=== PATIENT | female | born 1980 | race Caucasian/White ===

== ENCOUNTER → 2018-12-17 | Outpatient (CLI) | payer OTHER ==
--- NOTE | 2018-12-18 10:26 | MM ---
Reason for exam: screening (asymptomatic). Last mammogram was performed 1 year and 3 months ago. History: Patient had first child at age 30. Physical Findings: A clinical breast exam by your physician is recommended on an annual basis and results should be correlated with mammographic findings. MG 3D Screening Mammo W/Cad Bilateral CC and MLO view(s) were taken. Prior study comparison: September 29, 2017, bilateral MG screening mammo w CAD. September 09, 2016, bilateral MG screening mammo w CAD. The breast tissue is extremely dense which could obscure a lesion on mammography. Finding: There are two 10 mm equal density (isodense) masses in the subareolar position and posterior central position of the right breast on CC view. ASSESSMENT: Incomplete: need additional imaging evaluation, BI-RAD 0 RECOMMENDATION: Special view mammogram of the right breast. If lesion persists on supplemental views, image directed ultrasound is recommended. [facility] will attempt to contact patient to return for supplemental views and ultrasound if indicated.
== END ==
LOC: RADMAMWWP 13:23
PROVIDERS: ATTEND Obstetrics & Gynecology
DX: Z12.31 Encounter for screening mammogram for malignant neoplasm of breast (principal)
CPT/HCPCS: 77063; 77067

== ENCOUNTER → 2018-12-24 | Outpatient (CLI) | payer OTHER ==
--- NOTE | 2018-12-24 15:12 | MM ---
Reason for exam: additional evaluation requested from abnormal screening. Last mammogram was performed less than 1 month ago. History: Patient had first child at age 30. Physical Findings: Nurse Summary: 0.5cm nodule in the right breast at 7 o'clock, 1 o'clock (nurse kp). MG 3D Work Up W/Cad RT CC and MLO view(s) were taken of the right breast. Prior study comparison: December 17, 2018, bilateral MG 3d screening mammo w/cad. September 29, 2017, bilateral MG screening mammo w CAD. The breast tissue is heterogeneously dense. This may lower the sensitivity of mammography. No distinct lesion persists on additional views. These results were verbally communicated with the patient and result sheet given to the patient on 12/24/18. ASSESSMENT: Incomplete: need additional imaging evaluation, BI-RAD 0 RECOMMENDATION: Ultrasound of the right breast. (palpable by nurse)
--- NOTE | 2018-12-24 15:13 | USB ---
Reason for exam: additional evaluation requested from abnormal screening. History: Patient had first child at age 30. US Breast Workup Limited RT Right limited breast ultrasound including focal area of concern, retroareolar and axilla demonstrates a 6 x 4 x 6mm oval, cystic lesion at 12 o'clock and a 4 x 3 x 3mm lobular lesion too small to characterize at 12 o'clock. These results were verbally communicated with the patient and result sheet given to the patient on 12/24/18. ASSESSMENT: Probably benign, BI-RAD 3 RECOMMENDATION: Ultrasound of the right breast in 6 months.
== END | disposition home or self-care (01) ==
LOC: RADMAMWWP 13:33
PROVIDERS: ATTEND Obstetrics & Gynecology
DX: R92.8 Other abnormal and inconclusive findings on diagnostic imaging of breast (principal)
CPT/HCPCS: 77061; 77065

== ENCOUNTER → 2019-06-30 | Outpatient (CLI) | payer OTHER ==
--- NOTE | 2019-06-30 11:28 | USB ---
Reason for exam: follow-up at short interval from prior study. History: Patient had first child at age 30. Physical Findings: Nurse Summary: BB at 12 o'clock (nurse kp). US Breast RT Right complete breast ultrasound includes all four quadrants, the retroareolar region and axilla. Finding demonstrates a 0.4 x 0.3 x 0.3cm lesion too small to characterize at 12 o'clock, palpable correlation, a 0.4 x 0.3 x 0.3cm lesion at 12 o'clock, a 0.4 x 0.3 x 0.4cm lesion too small to characterize at 12 o'clock, taller than wide, biopsy recommended and a 0.6 x 0.4 x 0.4cm cystic lesion at 11 o'clock. These results were verbally communicated with the patient and result sheet given to the patient on 06/30/19. ASSESSMENT: Suspicious, BI-RAD 4 RECOMMENDATION: Ultrasound core biopsy of the right breast. (12 o'clock, 8cm from the nipple) Called Dr. Henriquez with mammographic findings and has scheduled an appointment for the patient for 07/12/19 at 9:[address] Cerrato. PRELIMINARY REPORT CALLED AND FAXED TO DR. CERRATO ON 06/30/19.
== END | disposition home or self-care (01) ==
LOC: RADUSWWP 09:35
PROVIDERS: ATTEND Obstetrics & Gynecology
DX: R92.8 Other abnormal and inconclusive findings on diagnostic imaging of breast (principal)

== ENCOUNTER → 2020-03-21 | Outpatient (CLI) | payer OTHER ==
--- NOTE | 2020-03-21 12:39 | MM ---
Reason for exam: follow-up at short interval from prior study. Last mammogram was performed 1 year and 3 months ago. History: Patient had first child at age 30. Benign excisional biopsy of the right breast, August 2019. Took hormonal contraceptives for 10 years. Physical Findings: Nurse did not find any significant physical abnormalities on exam. MG 3D Diag Mammo W/Cad [facility] Bilateral CC and MLO view(s) were taken. Prior study comparison: December 24, 2018, right breast MG 3d work up w/cad RT. December 24, 2018, right breast US breast workup limited RT. December 17, 2018, bilateral MG 3d screening mammo w/cad. September 09, 2016, bilateral MG screening mammo w CAD. The breast tissue is extremely dense which could obscure a lesion on mammography. There is a 6mm upper outer quadrant mass 8.5cm from nipple similar to prior however not seen on remote exams. Ultrasound will be done. Right biopsy marker. These results were verbally communicated with the patient and result sheet given to the patient on 03/21/20. ASSESSMENT: Incomplete: need additional imaging evaluation, BI-RAD 0 RECOMMENDATION: Ultrasound of the right breast.
--- NOTE | 2020-03-21 12:41 | USB ---
Reason for exam: additional evaluation requested from abnormal screening. History: Patient had first child at age 30. Benign excisional biopsy of the right breast, August 2019. Took hormonal contraceptives for 10 years. US Breast Limited RT Right limited breast ultrasound including focal area of concern, retroareolar and axilla demonstrates a 0.9 x 0.5 x 0.7cm cystic lesion at 11 o'clock and a 0.4 x 0.3 x 0.4cm cystic lesion at 12 o'clock. The previously seen mass, biopsied at an outside institution, is not reproduced on today's exam. These results were verbally communicated with the patient and result sheet given to the patient on 03/21/20. ASSESSMENT: Benign, BI-RAD 2 RECOMMENDATION: Routine screening mammogram of both breasts in 1 year.
== END | disposition home or self-care (01) ==
LOC: RADMAMWWP 10:57
PROVIDERS: ATTEND Obstetrics & Gynecology
DX: R92.8 Other abnormal and inconclusive findings on diagnostic imaging of breast (principal)
CPT/HCPCS: 77062; 77066

== ENCOUNTER 2020-07-13 20:18 | Emergency (ER) | payer OTHER ==
[2020-07-13 20:23] VITALS: TEMP 98
[2020-07-13 21:03] LABS: Basophils # (A) 0.1 k/uL (0-0.2); Basophils % (A) 2 %; Eosinophils # (A) 0.1 k/uL (0-0.7); Eosinophils % (A) 2 %; HCT 39.2 % (34.0-46.0); HGB 13.1 gm/dL (11.4-16.0); Lymphocytes # (A) 1.5 k/uL (1.0-4.8); Lymphocytes % (A) 25 %; MCH 29.8 pg (25.0-35.0); MCHC 33.5 g/dL (31.0-37.0); MCV 89.1 fL (80.0-100.0); Mean Platelet Volume 7.2; Monocytes % (A) 17 %; Neutrophils # (A) 3.1 k/uL (1.3-7.7); Neutrophils % (A) 52 %; Platelet Count 275 k/uL (150-450); RBC 4.39 m/uL (3.80-5.40); RDW 11.5 % (11.5-15.5); WBC 5.8 k/uL (3.8-10.6)
[2020-07-13 21:12] LABS: ALT 60 U/L (4-34); AST 52 U/L (14-36); African American GFR (CKD) >90 (>60 ml/min/1.73 sqM); Albumin 4.2 g/dL (3.5-5.0); Alkaline Phosphatase 83 U/L (38-126); Anion Gap 5 mmol/L; Blood Urea Nitrogen 16 mg/dL (7-17); Calcium 9.5 mg/dL (8.4-10.2); Carbon Dioxide 26 mmol/L (22-30); Chloride 105 mmol/L (98-107); Glucose 110 mg/dL (74-99); Non-African American GFR(CKD) >90 (>60 ml/min/1.73 sqM); Potassium 3.7 mmol/L (3.5-5.1); Sodium 136 mmol/L (137-145); Total Bilirubin 0.2 mg/dL (0.2-1.3); Total Protein 6.9 g/dL (6.3-8.2)
[2020-07-13 21:28] LABS: D-Dimer 0.47 mg/L FEU (<0.60); INR 0.9 (<1.2); Partial Thromboplastin Time 26.5 sec (22.0-30.0); Prothrombin Time 9.7 sec (9.0-12.0)
--- NOTE | 2020-07-13 21:39 | XR ---
EXAMINATION TYPE: XR chest 2V DATE OF EXAM: 07/13/2020 COMPARISON: NONE HISTORY: Chest pain TECHNIQUE: FINDINGS: Heart and mediastinum are normal. Lungs are clear. Diaphragm is normal. Bony thorax appears normal. There are chest leads. IMPRESSION: Normal chest
--- NOTE | 2020-07-13 21:44 | ED ---
Chest Pain HPI - General Chief Complaint: Chest Pain Stated Complaint: Chest Pain Time Seen by Provider: 07/13/20 20:35 Source: patient Mode of arrival: wheelchair Limitations: no limitations - History of Present Illness Initial Comments: Patient is a 40-year-old female presenting to emergency Department with complaints of intermittent chest discomfort that started last night. Patient states she noticed it last night, described it as some chest tightness "behind her breast bone." Patient states this pain lasted about 30 minutes and then went away. Patient states after dinner this evening and the pain came back again and lasted for about an hour. Patient states she spoke with her and they decided to be seen. Patient states currently she is not expressing any chest tightness or pressure. She denies being short of breath. She denies any recent fever, chills, cough, nausea, vomiting. She denies being a smoker, she has no personal history of heart disease. She takes no medications other than supplements. She has no further complaints at this time. Upon arrival to the ER, her vitals are stable. - Related Data Home Medications Medication Instructions Recorded Confirmed Multivitamins, Thera [Multivitamin] 1 tab PO HS 08/27/14 07/13/20 Allergies Allergy/AdvReac Type Severity Reaction Status Date / Time dextromethorphan AdvReac Hallucinati Verified 07/13/20 21:36 ons Review of Systems ROS Statement: Those systems with pertinent positive or pertinent negative responses have been documented in the HPI. ROS Other: All systems not noted in ROS Statement are negative. EKG Findings - EKG Comments: EKG Findings:: Sinus tachycardia, T-wave abnormality, no signs of acute ischemia. Similar to previous EKG in 08/27/2014. Ventricular rate 114, IA interval 150, QT 320. Past Medical History Past Medical History: No Reported History History of Any Multi-Drug Resistant Organisms: None Reported Past Surgical History: Hernia Repair Additional Past Surgical History / Comment(s): leap procedure Past Psychological History: No Psychological Hx Reported Smoking Status: Never smoker Past Alcohol Use History: None Reported Past Drug Use History: None Reported General Exam - General Exam Comments Initial Comments: GENERAL: Patient is well-developed and well-nourished. Patient is nontoxic and in no acute distress. HEAD: Atraumatic, normocephalic. EYES: Pupils equal round and reactive to light, extraocular movements intact, sclera anicteric, conjunctiva are normal. Eyelids were unremarkable. ENT: TMs normal, nares patent, oropharynx clear without exudates. Moist mucous membranes. NECK: Normal range of motion, supple without lymphadenopathy or JVD. LUNGS: Unlabored respirations. Breath sounds clear to auscultation bilaterally and equal. No wheezes rales or rhonchi. HEART: Regular rate and rhythm without murmurs, rubs or gallops. ABDOMEN: Soft, nontender, normoactive bowel sounds. No guarding, no rebound. No masses appreciated. : Deferred MUSCULOSKELETAL: Normal extremities with adequate strength and normal range of motion, no pitting or edema. No clubbing or cyanosis. NEUROLOGICAL: Patient is alert and oriented x 3. Motor and sensory are also intact. Cranial nerves II through XII grossly intact. Symmetrical smile. Normal speech, normal gait. PSYCH: Normal mood, normal affect. SKIN: Warm, Dry, normal turgor, no rashes or lesions noted. Limitations: no limitations Course Vital Signs 07/13/20 07/13/20 07/13/20 20:22 21:00 21:46 Temperature 98.0 F Pulse Rate 103 H 91 Respiratory 18 16 Rate Blood Pressure 132/81 122/78 117/79 O2 Sat by Pulse 100 100 Oximetry 07/13/20 22:29 Temperature Pulse Rate 90 Respiratory 16 Rate Blood Pressure 116/84 O2 Sat by Pulse 99 Oximetry Chest Pain [facility] Patient is a 40-year-old female here for intermittent chest tightness that started last night. She does have an episode today after eating. Currently in the ER, she is symptom-free, no shortness of breath. Her vital signs are showing sinus tach otherwise normal. She states she does get nervous with blood draws. Her EKG shows sinus tachycardia, no signs of acute ischemia. Lab work is unremarkable including a normal d-dimer, troponin is normal. Liver enzymes are very slightly elevated at 52 and 60. Chest x-ray reveals no acute abnormalities. She has remained symptom-free in the ER. I discussed these findings with the patient. Her symptoms could be related to anxiety or infl ammation. Did recommend ibuprofen for discomfort. She can follow up with her PCP. Patient is in agreement with this plan of care. She is stable for discharge. Return parameters were discussed with the patient she verbalized understanding. Case discussed with Dr. Hinton. Disposition Clinical Impression: Atypical chest pain Disposition: HOME SELF-CARE Condition: Stable Instructions (If sedation given, give patient instructions): Chest Pain (ED) Additional Instructions: Please return to the Emergency Department if symptoms worsen or any other concerns. Follow-up with PCP as discussed. Is patient prescribed a controlled substance at d/c from ED?: No Referrals: Pancho Contreras MD [Primary Care Provider] - 1-2 days
[2020-07-13 21:46] VITALS: RESP 16
[2020-07-13 22:30] VITALS: BP 116/84; PULSE 90
== END 2020-07-13 22:30 | disposition home or self-care (01) ==
LOC: EC 20:18
DX: R07.89 Other chest pain (principal); R00.0 Tachycardia, unspecified; Z88.8 Allergy status to other drugs, medicaments and biological substances
CPT/HCPCS: 36415; 71046; 80053; 83735; 84484; 85025; 85379; 85610; 85730; 93005; 99285

== ENCOUNTER → 2020-12-20 | Outpatient (CLI) | payer OTHER | END | disposition home or self-care (01) | LOC: LABWHC1 16:10 | PROVIDERS: ATTEND Family Medicine | DX: Z20.822 Contact with and (suspected) exposure to COVID-19 (principal) | CPT/HCPCS: U0003; C9803; U0005 ==

== ENCOUNTER 2020-12-26 03:53 | Emergency (ER) | payer OTHER ==
[2020-12-26 04:02] VITALS: TEMP 97.6
--- NOTE | 2020-12-26 04:48 | ED ---
Back Pain HPI - General Chief Complaint: Back Pain/Injury Stated Complaint: back pain Time Seen by Provider: 12/26/20 04:04 Source: patient Limitations: no limitations - History of Present Illness Initial Comments: 's patient is a 40-year-old woman who presents to be evaluated for left thoracic back pain. The patient states that it had started around the time she was going to bed. She got up to use the bathroom this morning and noticed that the pain was there and was a bit worse so she felt she should be evaluated here. The patient describes it as somewhat achy, constant. It is sometimes worse with position or movement. No relieving factors. MD Complaint: back pain Onset/Timin -: hour(s) Similar Symptoms Previously: No Place: home Radiation: none Quality: aching Consistency: constant Improves With: none Worsens With: movement Associated Symptoms: denies other symptoms - Related Data Home Medications Medication Instructions Recorded Confirmed Multivitamins, Thera [Multivitamin] 1 tab PO HS 08/27/14 07/13/20 Previous Rx's Medication Instructions Recorded Ibuprofen [Motrin] 600 mg PO Q8HR PRN #20 tab 12/26/20 Methocarbamol [Robaxin-750] 750 mg PO TID PRN #30 tablet 12/26/20 Allergies Allergy/AdvReac Type Severity Reaction Status Date / Time dextromethorphan AdvReac Hallucinati Verified 12/26/20 04:02 ons Review of Systems ROS Statement: Those systems with pertinent positive or pertinent negative responses have been documented in the HPI. ROS Other: All systems not noted in ROS Statement are negative. Constitutional: Denies: fever, chills Respiratory: Denies: cough, dyspnea Cardiovascular: Reports: as per HPI. Denies: chest pain, palpitations, dyspnea on exertion, orthopnea, edema, syncope Gastrointestinal: Denies: abdominal pain, nausea, vomiting, diarrhea Genitourinary: Denies: dysuria, hematuria Musculoskeletal: Reports: as per HPI, back pain Skin: Denies: rash Neurological: Denies: headache 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 Past Psychological History: No Psychological Hx Reported Smoking Status: Never smoker Past Alcohol Use History: None Reported Past Drug Use History: None Reported General Exam Limitations: no limitations General appearance: alert, in no apparent distress Head exam: Present: atraumatic, normocephalic Eye exam: Present: normal appearance. Absent: scleral icterus, conjunctival injection Neck exam: Present: normal inspection Respiratory exam: Present: normal lung sounds bilaterally. Absent: respiratory distress, wheezes, rales, rhonchi, stridor Cardiovascular Exam: Present: regular rate, normal rhythm, normal heart sounds. Absent: systolic murmur, diastolic murmur, rubs, gallop GI/Abdominal exam: Present: soft. Absent: distended, tenderness, guarding, rebound, rigid, mass Extremities exam: Present: normal inspection, normal capillary refill. Absent: pedal edema, calf tenderness Back exam: Present: normal inspection, paraspinal tenderness. Absent: CVA tenderness (R), CVA tenderness (L), vertebral tenderness Neurological exam: Present: alert Skin exam: Present: warm, dry, intact, normal color. Absent: rash Course Vital Signs 12/26/20 12/26/20 03:56 05:15 Temperature 97.6 F Pulse Rate 108 H Respiratory 18 19 Rate Blood Pressure 126/70 O2 Sat by Pulse 100 Oximetry Medical Decision Making - Lab Data Result diagrams: 12/26/20 04:53 12/26/20 04:53 Lab Results 12/26/20 12/26/20 12/26/20 Range/Units 04:53 04:53 04:53 WBC 6.0 (3.8-10.6) k/uL RBC 4.25 (3.80-5.40) m/uL Hgb 13.3 (11.4-16.0) gm/dL Hct 38.3 (34.0-46.0) % MCV 90.2 (80.0-100.0) fL MCH 31.4 (25.0-35.0) pg MCHC 34.8 (31.0-37.0) g/dL RDW 11.6 (11.5-15.5) % Plt Count 285 (150-450) k/uL MPV 7.3 Neutrophils % 63 % Lymphocytes % 27 % Monocytes % 6 % Eosinophils % 2 % Basophils % 1 % Neutrophils # 3.8 (1.3-7.7) k/uL Lymphocytes # 1.6 (1.0-4.8) k/uL Monocytes # 0.4 (0-1.0) k/uL Eosinophils # 0.1 (0-0.7) k/uL Basophils # 0.0 (0-0.2) k/uL D-Dimer 0.24 (<0.60) mg/L FEU Sodium 136 L (137-145) mmol/L Potassium 4.0 (3.5-5.1) mmol/L Chloride 105 (98-107) mmol/L Carbon Dioxide 26 (22-30) mmol/L Anion Gap 5 mmol/L BUN 15 (7-17) mg/dL Creatinine 0.79 (0.52-1.04) mg/dL Est GFR (CKD-EPI)AfAm >90 (>60 ml/min/1.73 sqM) Est GFR (CKD-EPI)NonAf >90 (>60 ml/min/1.73 sqM) Glucose 105 H (74-99) mg/dL Calcium 9.2 (8.4-10.2) mg/dL Total Bilirubin 0.4 (0.2-1.3) mg/dL AST 25 (14-36) U/L ALT 23 (4-34) U/L Alkaline Phosphatase 68 (38-126) U/L Troponin I (0.000-0.034) ng/mL Total Protein 6.9 (6.3-8.2) g/dL Albumin 4.2 (3.5-5.0) g/dL 12/26/20 Range/Units 04:53 WBC (3.8-10.6) k/uL RBC (3.80-5.40) m/uL Hgb (11.4-16.0) gm/dL Hct (34.0-46.0) % MCV (80.0-100.0) fL MCH (25.0-35.0) pg MCHC (31.0-37.0) g/dL RDW (11.5-15.5) % Plt Count (150-450) k/uL MPV Neutrophils % % Lymphocytes % % Monocytes % % Eosinophils % % Basophils % % Neutrophils # (1.3-7.7) k/uL Lymphocytes # (1.0-4.8) k/uL Monocytes # (0-1.0) k/uL Eosinophils # (0-0.7) k/uL Basophils # (0-0.2) k/uL D-Dimer (<0.60) mg/L FEU Sodium (137-145) mmol/L Potassium (3.5-5.1) mmol/L Chloride (98-107) mmol/L Carbon Dioxide (22-30) mmol/L Anion Gap mmol/L BUN (7-17) mg/dL Creatinine (0.52-1.04) mg/dL Est GFR (CKD-EPI)AfAm (>60 ml/min/1.73 sqM) Est GFR (CKD-EPI)NonAf (>60 ml/min/1.73 sqM) Glucose (74-99) mg/dL Calcium (8.4-10.2) mg/dL Total Bilirubin (0.2-1.3) mg/dL AST (14-36) U/L ALT (4-34) U/L Alkaline Phosphatase (38-126) U/L Troponin I <0.012 (0.000-0.034) ng/mL Total Protein (6.3-8.2) g/dL Albumin (3.5-5.0) g/dL - EKG Data -: EKG Interpreted by Ar EKG shows normal: sinus rhythm, axis (Normal), intervals (Normal), QRS complexes (Normal), ST-T waves (Normal) Rate: normal (Rate 92 bpm) Interpretation: normal EKG Disposition Clinical Impression: Thoracic back pain Disposition: HOME SELF-CARE Condition: Good Instructions (If sedation given, give patient instructions): Thoracic Back Strain (ED) Prescriptions: Ibuprofen [Motrin] 600 mg PO Q8HR PRN #20 tab PRN Reason: Pain Methocarbamol [Robaxin-750] 750 mg PO TID PRN #30 tablet PRN Reason: pain Is patient prescribed a controlled substance at d/c from ED?: No Referrals: Pancho Contreras MD [Primary Care Provider] - 1-2 days
[2020-12-26 05:04] LABS: Basophils % (A) 1 %; Eosinophils # (A) 0.1 k/uL (0-0.7); Eosinophils % (A) 2 %; HCT 38.3 % (34.0-46.0); HGB 13.3 gm/dL (11.4-16.0); Lymphocytes # (A) 1.6 k/uL (1.0-4.8); Lymphocytes % (A) 27 %; MCH 31.4 pg (25.0-35.0); MCHC 34.8 g/dL (31.0-37.0); MCV 90.2 fL (80.0-100.0); Mean Platelet Volume 7.3; Monocytes # (A) 0.4 k/uL (0-1.0); Monocytes % (A) 6 %; Neutrophils # (A) 3.8 k/uL (1.3-7.7); Neutrophils % (A) 63 %; Platelet Count 285 k/uL (150-450); RBC 4.25 m/uL (3.80-5.40); RDW 11.6 % (11.5-15.5)
--- NOTE | 2020-12-26 05:15 | XR ---
EXAM: XR Chest, 2 Views CLINICAL HISTORY: ITS.REASON XR Reason: Chest Pain TECHNIQUE: Frontal and lateral views of the chest. COMPARISON: Chest x-ray dated 07/13/2020 FINDINGS: Lungs: Unremarkable. Pleural space: Unremarkable. Heart: Unremarkable. Mediastinum: Unremarkable. Bones/joints: Unremarkable. IMPRESSION: Normal chest x-rays.
[2020-12-26 05:21] LABS: ALT 23 U/L (4-34); AST 25 U/L (14-36); African American GFR (CKD) >90 (>60 ml/min/1.73 sqM); Albumin 4.2 g/dL (3.5-5.0); Alkaline Phosphatase 68 U/L (38-126); Anion Gap 5 mmol/L; Blood Urea Nitrogen 15 mg/dL (7-17); Calcium 9.2 mg/dL (8.4-10.2); Carbon Dioxide 26 mmol/L (22-30); Chloride 105 mmol/L (98-107); Glucose 105 mg/dL (74-99); Non-African American GFR(CKD) >90 (>60 ml/min/1.73 sqM); Sodium 136 mmol/L (137-145); Total Bilirubin 0.4 mg/dL (0.2-1.3); Total Protein 6.9 g/dL (6.3-8.2)
[2020-12-26 06:00] VITALS: BP 102/46; PULSE 78; RESP 16
== END 2020-12-26 06:00 | disposition home or self-care (01) ==
LOC: EC 03:53
DX: M54.6 Pain in thoracic spine (principal); Z88.8 Allergy status to other drugs, medicaments and biological substances
CPT/HCPCS: 36415; 71046; 80053; 84484; 85025; 85379; 93005; 99284

== ENCOUNTER → 2021-04-19 | Outpatient (CLI) | payer OTHER ==
--- NOTE | 2021-04-23 15:19 | MM ---
Reason for exam: screening (asymptomatic). Last mammogram was performed 1 year and 1 month ago. History: Patient had first child at age 30. Benign excisional biopsy of the right breast, August 2019. Took hormonal contraceptives for 10 years. Physical Findings: A clinical breast exam by your physician is recommended on an annual basis and results should be correlated with mammographic findings. MG 3D Screening Mammo W/Cad Bilateral CC and MLO view(s) were taken. Prior study comparison: March 21, 2020, bilateral MG 3d diag mammo w/cad [facility]. December 17, 2018, bilateral MG 3d screening mammo w/cad. September 09, 2016, bilateral MG screening mammo w CAD. The breast tissue is heterogeneously dense. This may lower the sensitivity of mammography. Previous mammotome biopsy in the right breast. There is chronic nodularity in the right breast. No significant changes when compared with prior studies. ASSESSMENT: Benign, BI-RAD 2 RECOMMENDATION: Routine screening mammogram of both breasts in 1 year. Patient should continue monthly self breast exams. A negative report should not preclude additional follow up of suspicious palpable abnormalities.
== END | disposition home or self-care (01) ==
LOC: RADMAMWWP 09:08
PROVIDERS: ATTEND Obstetrics & Gynecology
DX: Z12.31 Encounter for screening mammogram for malignant neoplasm of breast (principal)
CPT/HCPCS: 77063; 77067

== ENCOUNTER → 2022-05-08 | Outpatient (CLI) | payer OTHER ==
--- NOTE | 2022-05-09 14:23 | MM ---
Reason for Exam: Screening (asymptomatic). Last screening mammogram was performed 12 month(s) ago. Patient History: Menarche at age 12. First Full-Term at age 30. Late child-bearing (after 30). Patient has history of breast feeding. Patient used Hormonal Contraceptives for 10 years. 08/2019, Benign Excisional Biopsy on the right side. Last menstrual period: 05/01/2022 Risk Values: Karin 5 year model risk: 1.4%. NCI Lifetime model risk: 14.6%. Prior Study Comparison: 12/24/2018 Right Diagnostic Mammogram, [facility]. 03/21/2020 Bilateral Diagnostic Mammogram, [facility]. 04/19/2021 Bilateral Screening Mammogram, [facility]. Tissue Density: The breast tissue is extremely dense which could obscure a lesion on mammography. Findings: Analyzed By CAD. Pattern appears symmetrical and stable. Core marker is within the right breast. No suspicious groups of microcalcifications, spiculated or lobular masses, architectural distortion or other secondary signs of malignancy are mammographically apparent. Overall Assessment: Benign, BI-RAD 2 Management: Screening Mammogram of both breasts in 1 year. A negative mammogram report should not preclude additional follow up of suspicious palpable abnormalities. Patient should continue monthly self breast exam. A clinical breast exam by your physician is recommended on an annual basis and results should be correlated with mammographic findings. Electronically signed and approved by: Tristan Almeida D.O. Radiologis
== END | disposition home or self-care (01) ==
LOC: RADMAMWWP 13:47
PROVIDERS: ATTEND Obstetrics & Gynecology
DX: Z12.31 Encounter for screening mammogram for malignant neoplasm of breast (principal)
CPT/HCPCS: 77063; 77067

== ENCOUNTER 2023-04-04 20:56 | Observation (INO) | payer OTHER ==
[2023-04-04] MEDS ORDERED: SODIUM CHLORIDE 0.9% 1,000 ML IV ONE (21:31)
[2023-04-04 21:32] LABS: Basophils % (A) 1 %; Eosinophils # (A) 0.1 k/uL (0-0.7); Eosinophils % (A) 1 %; HCT 38.3 % (34.0-46.0); Lymphocytes # (A) 2.3 k/uL (1.0-4.8); Lymphocytes % (A) 34 %; MCH 30.8 pg (25.0-35.0); MCV 90.5 fL (80.0-100.0); Monocytes # (A) 0.5 k/uL (0-1.0); Monocytes % (A) 8 %; Neutrophils # (A) 3.8 k/uL (1.3-7.7); Neutrophils % (A) 55 %; Platelet Count 271 k/uL (150-450); RBC 4.23 m/uL (3.80-5.40); RDW 11.6 % (11.5-15.5); WBC 6.8 k/uL (3.8-10.6)
--- NOTE | 2023-04-04 21:36 | ED ---
General Adult HPI - General Chief complaint: Arrhythmia/Palpitations Stated complaint: Palptations Time Seen by Provider: 04/04/23 21:15 Source: patient Mode of arrival: wheelchair Limitations: no limitations - History of Present Illness Initial comments: This is a 42-year-old female with no past medical history presents emergency department for palpitations. The patient stated that she has felt as if her heart was racing on and off over the last several weeks but stated that she did not know that she had an elevated heart rate until she put on her watch which alerted her to her high heart rate. The patient stated that she continued to be anxious about this and wanted to be evaluated. The patient denied any shortness of breath or chest pain with this episode of palpitations but did state that she had some mild diaphoresis. The patient stated that she denied of any recent travel, family history of blood clots. The patient denied any other acute pain or complaints and was resting in bed comfortably on my evaluation. - Related Data Home Medications Medication Instructions Recorded Confirmed Multivitamins, Thera [Multivitamin] 1 tab PO HS 08/27/14 07/13/20 Previous Rx's Medication Instructions Recorded Ibuprofen [Motrin] 600 mg PO Q8HR PRN #20 tab 12/26/20 methocarbamoL [Robaxin-750] 750 mg PO TID PRN #30 tablet 12/26/20 Allergies Allergy/AdvReac Type Severity Reaction Status Date / Time dextromethorphan AdvReac Hallucinati Verified 04/04/23 21:07 ons Review of Systems ROS Statement: Those systems with pertinent positive or pertinent negative responses have been documented in the HPI. ROS Other: All systems not noted in ROS Statement are negative. 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 Past Psychological History: No Psychological Hx Reported Smoking Status: Never smoker Past Alcohol Use History: None Reported Past Drug Use History: None Reported General Exam Limitations: no limitations General appearance: alert, in no apparent distress Head exam: Present: atraumatic, normocephalic, normal inspection Eye exam: Present: normal appearance, PERRL Pupils: Present: normal accommodation ENT exam: Present: normal exam, normal oropharynx, mucous membranes moist Neck exam: Present: normal inspection, full ROM Respiratory exam: Present: normal lung sounds bilaterally Cardiovascular Exam: Present: normal rhythm, tachycardia, normal heart sounds GI/Abdominal exam: Present: soft, normal bowel sounds Extremities exam: Present: normal inspection, full ROM, normal capillary refill Back exam: Present: normal inspection, full ROM Neurological exam: Present: alert, oriented X3, CN II-XII intact Psychiatric exam: Present: normal affect, normal mood Skin exam: Present: warm, dry Course Vital Signs 04/04/23 04/04/23 04/04/23 21:04 21:27 21:36 Temperature 98.6 F Pulse Rate 138 H 115 H 105 H Respiratory 20 13 Rate Blood Pressure 158/102 O2 Sat by Pulse 100 99 Oximetry 04/04/23 04/04/23 04/04/23 21:56 22:00 22:15 Temperature Pulse Rate 118 H 121 H 116 H Respiratory 14 13 15 Rate Blood Pressure 138/83 138/83 140/87 O2 Sat by Pulse 100 100 100 Oximetry EKG Findings - EKG Comments: EKG Findings:: An EKG was obtained and was interpreted by myself showing a rate of 114, FL interval 116, QRS duration of 80 and QTC of 395. This EKG showed a s inus tachycardia with no ST segment elevation or depression noted. Medical Decision Making - Medical Decision Making Was pt. sent in by a medical professional or institution ([facility], [facility], urgent care, hospital, or prison...) When possible be specific @ -No Did you speak to anyone other than the patient for history (EMS, parent, family, police, friend...)? What history was obtained from this source @ -No Did you review nursing and triage notes (agree or disagree)? Why? @ -I reviewed and agree with nursing and triage notes Were old charts reviewed (outside hosp., previous admission, EMS record, old EKG, old radiological studies, urgent care reports/EKG's, prison records)? Report findings @ -No old charts were reviewed Differential Diagnosis (chest pain, altered mental status, abdominal pain women, abdominal pain men, vaginal bleeding, weakness, fever, dyspnea, syncope, headache, dizziness, GI bleed, back pain, seizure, CVA, palpatations, mental health)? @ -Palpitations, ACS, electrolyte abnormality EKG interpreted by me (3pts min.). @ -As above X-rays interpreted by me (1pt min.). @ -Chest x-ray was obtained and was interpreted by myself showing no acute process. CT interpreted by me (1pt min.). @ -None done U/S interpreted by me (1pt. min.). @ -None done What testing was considered but not performed or refused? (CT, X-rays, U/S, labs)? Why? @ -None What meds were considered but not given or refused? Why? @ -None Did you discuss the management of the patient with other professionals (professionals i.e. , PA, [facility] [facility], lab, RT, psych nurse, home health care social worker, medical records specialist, teacher, third officer, rifle case repairer)? Give summary @ -Yes, admitting physician was contacted regarding placement patient observation. Was smoking cessation discussed for >3mins.? @ -No Was critical care preformed (if so, how long)? @ -No Were there social determinants of health that impacted care today? How? (Homelessness, low income, unemployed, alcoholism, drug addiction, transportation, low edu. Level, literacy, decrease access to med. care, half-way, rehab)? @ -No Was there de-escalation of care discussed even if they declined (Discuss DNR or withdrawal of care, Hospice)? DNR status @ -No What co-morbidities impacted this encounter? (DM, HTN, Smoking, COPD, CAD, Cancer, CVA, ARF, Chemo, Hep., AIDS, mental health diagnosis, sleep apnea, morbid obesity)? @ -None Was patient admitted / discharged? Hospital course, mention meds given and route, prescriptions, significant lab abnormalities, going to OR and other pertinent info. @ -The patient was seen and evaluated emergency department. Physical exam, the patient was resting in bed without any acute distress. Vital signs admission did show tachycardia without any other abnormalities. The patient was however resting in bed comfortably. Due to these symptoms, laboratory workup was obtained as was a chest x-ray and EKG. All laboratory workup was within normal limits and workup was negative. The patient did receive 1 L normal saline fluid but did remain persistently tachycardic. On reevaluation, the patient stated that she had continued symptoms and feeling "off" and because of this was offered observation and evaluation by cardiology. The patient did agree to this and the patient was placed in observation with cardiology on consult. The patient did continue to remain stable while in the emergency department. Undiagnosed new problem with uncertain prognosis? @ -No Drug Therapy requiring intensive monitoring for toxicity (Heparin, Nitro, Insulin, Cardizem)? @ -No Were any procedures done? @ -No Diagnosis/symptom? @ -Persistent tachycardia, palpitations Acute, or Chronic, or Acute on Chronic? @ -Acute on chronic Uncomplicated (without systemic symptoms) or Complicated (systemic symptoms)? @ -Complicated Side effects of treatment? @ -No Exacerbation, Progression, or Severe Exacerbation? @ -No Poses a threat to life or bodily function? How? (Chest pain, [place], ND, pneumonia, PE, COPD, DKA, ARF, appy, cholecystitis, CVA, Diverticulitis, Homicidal, Suicidal, threat to staff... and all critical care pts) @ -No - Lab Data Result diagrams: 04/04/23 21:20 04/04/23 21:20 Lab Results 04/04/23 04/04/23 04/04/23 Range/Units 21:20 21:20 21:20 WBC 6.8 (3.8-10.6) k/uL RBC 4.23 (3.80-5.40) m/uL Hgb 13.0 (11.4-16.0) gm/dL Hct 38.3 (34.0-46.0) % MCV 90.5 (80.0-100.0) fL MCH 30.8 (25.0-35.0) pg MCHC 34.0 (31.0-37.0) g/dL RDW 11.6 (11.5-15.5) % Plt Count 271 (150-450) k/uL MPV 8.0 Neutrophils % 55 % Lymphocytes % 34 % Monocytes % 8 % Eosinophils % 1 % Basophils % 1 % Neutrophils # 3.8 (1.3-7.7) k/uL Lymphocytes # 2.3 (1.0-4.8) k/uL Monocytes # 0.5 (0-1.0) k/uL Eosinophils # 0.1 (0-0.7) k/uL Basophils # 0.0 (0-0.2) k/uL D-Dimer (<0.60) mg/L FEU Sodium 139 (137-145) mmol/L Potassium 3.5 (3.5-5.1) mmol/L Chloride 109 H (98-107) mmol/L Carbon Dioxide 23 (22-30) mmol/L Anion Gap 7 mmol/L BUN 10 (7-17) mg/dL Creatinine 0.85 (0.52-1.04) mg/dL Est GFR (CKD-EPI)AfAm >90 (>60 ml/min/1.73 sqM) Est GFR (CKD-EPI)NonAf 84 (>60 ml/min/1.73 sqM) Glucose 116 H (74-99) mg/dL Calcium 9.0 (8.4-10.2) mg/dL Magnesium 1.9 (1.6-2.3) mg/dL Total Bilirubin 0.3 (0.2-1.3) mg/dL AST 42 H (14-36) U/L ALT 46 H (4-34) U/L Alkaline Phosphatase 81 (38-126) U/L Troponin I <0.012 (0.000-0.034) ng/mL Total Protein 6.7 (6.3-8.2) g/dL Albumin 4.0 (3.5-5.0) g/dL 04/04/23 Range/Units 21:29 WBC (3.8-10.6) k/uL RBC (3.80-5.40) m/uL Hgb (11.4-16.0) gm/dL Hct (34.0-46.0) % MCV (80.0-100.0) fL MCH (25.0-35.0) pg MCHC (31.0-37.0) g/dL RDW (11.5-15.5) % Plt Count (150-450) k/uL MPV Neutrophils % % Lymphocytes % % Monocytes % % Eosinophils % % Basophils % % Neutrophils # (1.3-7.7) k/uL Lymphocytes # (1.0-4.8) k/uL Monocytes # (0-1.0) k/uL Eosinophils # (0-0.7) k/uL Basophils # (0-0.2) k/uL D-Dimer 0.24 (<0.60) mg/L FEU Sodium (137-145) mmol/L Potassium (3.5-5.1) mmol/L Chloride (98-107) mmol/L Carbon Dioxide (22-30) mmol/L Anion Gap mmol/L BUN (7-17) mg/dL Creatinine (0.52-1.04) mg/dL Est GFR (CKD-EPI)AfAm (>60 ml/min/1.73 sqM) Est GFR (CKD-EPI)NonAf (>60 ml/min/1.73 sqM) Glucose (74-99) mg/dL Calcium (8.4-10.2) mg/dL Magnesium (1.6-2.3) mg/dL Total Bilirubin (0.2-1.3) mg/dL AST (14-36) U/L ALT (4-34) U/L Alkaline Phosphatase (38-126) U/L Troponin I (0.000-0.034) ng/mL Total Protein (6.3-8.2) g/dL Albumin (3.5-5.0) g/dL Disposition Clinical Impression: Tachycardia, Palpitations Disposition: ADMITTED IP TO THIS [facility] Condition: Stable Instructions (If sedation given, give patient instructions): Heart Palpitations (ED) Is patient prescribed a controlled substance at d/c from ED?: No Referrals: Pancho Contreras MD [Primary Care Provider] - 1-2 days Time of Disposition: 23:10 Decision to Admit Reason: Admit from EC Decision Date: 04/04/23 Decision Time: 23:10
--- NOTE | 2023-04-04 21:56 | XR ---
EXAMINATION TYPE: XR chest 2V DATE OF EXAM: 04/04/2023 9:47 PM COMPARISON: Chest radiographs from TECHNIQUE: XR chest 2V Frontal and lateral views of the chest. CLINICAL INDICATION:Female, 42 years old with history of Palpitations; FINDINGS: Lungs/Pleura: There is no evidence of pleural effusion, focal consolidation, or pneumothorax. Pulmonary vascularity: Unremarkable. Heart/mediastinum: Cardiomediastinal silhouette is unremarkable. Musculoskeletal: No acute osseous pathology. IMPRESSION: No acute cardiopulmonary disease/process.
[2023-04-04 22:07] LABS: ALT 46 U/L (4-34); AST 42 U/L (14-36); African American GFR (CKD) >90 (>60 ml/min/1.73 sqM); Alkaline Phosphatase 81 U/L (38-126); Anion Gap 7 mmol/L; Blood Urea Nitrogen 10 mg/dL (7-17); Carbon Dioxide 23 mmol/L (22-30); Chloride 109 mmol/L (98-107); Glucose 116 mg/dL (74-99); Magnesium 1.9 mg/dL (1.6-2.3); Non-African American GFR(CKD) 84 (>60 ml/min/1.73 sqM); Potassium 3.5 mmol/L (3.5-5.1); Sodium 139 mmol/L (137-145); Total Bilirubin 0.3 mg/dL (0.2-1.3); Total Protein 6.7 g/dL (6.3-8.2)
[2023-04-04] MEDS ORDERED: NALOXONE 0.4 MG/ML 1 ML VIAL IV PRN (23:31)
[2023-04-05 08:29] VITALS: BP 115/75; PULSE 85; RESP 15; TEMP 98.2
--- NOTE | 2023-04-05 11:40 | P.CRDCN ---
History of Present Illness Consult date: 04/05/23 Reason for Consult (text): Persistent tachycardia History of present illness: Update Patient complains of recurrent palpitations Twelve-lead EKG suggests sinus tachycardia (differential: high right atrial tachycardia) Check TSH Follow-up as an outpatient in the next 1-2 weeks This is Alvin Ford NP, I'm dictating on behalf of Dr. Black's H&P and A&P The patient was interviewed and examined. HPI: Patient is a pleasant 42-year-old female who presented to the hospital with complaints of persistent tachycardia. Patient reports that she's been having and noticing occasional tachycardic episodes intermittently over the last couple of months. Patient reports that yesterday evening, she felt slightly sweaty, and felt like her heart was racing. She put her [place] watch on, which told her that her heart rate was quite elevated. This continued to persist throughout the evening, so she presented to the hospital for evaluation. In the emergency department the patient was found to be in sinus tachycardia. Lab work was noncontributory at that time. The patient continued in sinus tachycardia, and was subsequently admitted for ideology consult and evaluation. Patient does not have any significant past medical history. Patient does not have a significant past surgical history. This morning, the patient reports that she's feeling better. On telemetry, it is noted that her heart is in regular rhythm with no tachycardia. The patient has had no further episodes of tachycardia since admission. ROS: [No fever, chills, or rigors] [no cough, phlegm, or expectoration] [no nausea, vomiting, or diarrhea] [no hematuria, dysuria] [no musculoskelatal complaints] [no strokes or seizures] [no skin lesions] EXAMINATION: GENERAL: Well-appearing, well-nourished and in no acute distress. NECK: Supple without JVD or thyromegaly. LUNGS: Breath sounds clear to auscultation bilaterally. Respiration equal and unlabored. No wheezes, rales or rhonchi. HEART: Regular rate and rhythm without murmurs, rubs or gallops. S1 and S2 h eard. EXTREMITIES: Normal range of motion, no edema. No clubbing or cyanosis. Peripheral pulses intact and strong. REVIEW OF LABS, ECG & MEDICAL DATA: LABS: White count 6.8, hemoglobin 13.0, platelets 271, d-dimer 0.24, sodium 139, potassium 3.5, B1 10, creatinine 0.85, calcium 9.0, magnesium 1.9, troponin less than 0.0122 EKG: Initially sinus tachycardia, now normal sinus rhythm IMAGING: Chest x-ray dated 04/04/2023 demonstrates no acute cardiopulmonary disease/process. VITALS: Temp 98.2, pulse 67, respirations 15, blood pressure 115/75, O2 saturation 100% on room air IMPRESSION: 1. Sinus tachycardia of unknown etiology 2. History of COVID-19 infection PLAN: Obtain TSH, lipid panel, and hemoglobin A1c. Once labs are obtained, the patient is okay [facility]. Plan to follow-up with Dr. Black in the office, for a 30 day event monitor. Thank you for the consult and allowing us to participate in the care of this patient. 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 Past Psychological History: No Psychological Hx Reported Smoking Status: Never smoker Past Alcohol Use History: None Reported Past Drug Use History: None Reported Medications and Allergies Home Medications Medication Instructions Recorded Confirmed Type Multivitamins, Thera [Multivitamin 1 tab PO HS 08/27/14 04/05/23 History (formulary)] L.acidoph,Paracasei, B.lactis 1 cap PO HS 04/05/23 04/05/23 History [Probiotic] Turmeric Root Extract [Turmeric] 500 mg PO HS 04/05/23 04/05/23 History Allergies Allergy/AdvReac Type Severity Reaction Status Date / Time dextromethorphan AdvReac Hallucinati Verified 04/05/23 11:14 ons Physical Exam Vitals: Vital Signs Temp Pulse Pulse Pulse Resp BP BP 04/05/23 07:25 98.2 F 85 15 115/75 04/05/23 06:00 67 14 04/05/23 05:00 67 17 04/05/23 04:00 89 16 04/05/23 03:30 77 17 04/05/23 03:00 79 15 04/05/23 02:30 73 16 04/05/23 02:00 78 17 100/46 04/05/23 00:00 87 16 122/77 04/04/23 23:30 100 18 122/77 04/04/23 23:00 103 H 18 114/76 04/04/23 22:32 112 H 17 131/82 04/04/23 22:15 116 H 15 140/87 04/04/23 22:00 121 H 13 138/83 04/04/23 21:56 118 H 14 138/83 04/04/23 21:36 105 H 13 04/04/23 21:27 115 H 04/04/23 21:19 115 H 04/04/23 21:04 98.6 F 138 H 20 158/102 Pulse Ox 04/05/23 07:25 100 04/05/23 06:00 97 04/05/23 05:00 98 04/05/23 04:00 97 04/05/23 03:30 97 04/05/23 03:00 96 04/05/23 02:30 96 04/05/23 02:00 96 04/05/23 00:00 97 04/04/23 23:30 99 04/04/23 23:00 100 04/04/23 22:32 100 04/04/23 22:15 100 04/04/23 22:00 100 04/04/23 21:56 100 04/04/23 21:36 99 04/04/23 21:27 04/04/23 21:19 04/04/23 21:04 100 Intake and Output 04/04/23 04/05/23 04/05/23 22:59 06:59 14:59 Other: # Voids 1 Weight 58.967 kg Results 04/04/23 21:20 04/04/23 21:20 Cardiac Enzymes 04/04/23 04/04/23 04/05/23 Range/Units 21:20 21:20 10:33 AST 42 H (14-36) U/L Troponin I <0.012 <0.012 (0.000-0.034) ng/mL CBC 04/04/23 Range/Units 21:20 WBC 6.8 (3.8-10.6) k/uL RBC 4.23 (3.80-5.40) m/uL Hgb 13.0 (11.4-16.0) gm/dL Hct 38.3 (34.0-46.0) % Plt Count 271 (150-450) k/uL Comprehensive Metabolic Panel 04/04/23 Range/Units 21:20 Sodium 139 (137-145) mmol/L Potassium 3.5 (3.5-5.1) mmol/L Chloride 109 H (98-107) mmol/L Carbon Dioxide 23 (22-30) mmol/L BUN 10 (7-17) mg/dL Creatinine 0.85 (0.52-1.04) mg/dL Glucose 116 H (74-99) mg/dL Calcium 9.0 (8.4-10.2) mg/dL AST 42 H (14-36) U/L ALT 46 H (4-34) U/L Alkaline Phosphatase 81 (38-126) U/L Total Protein 6.7 (6.3-8.2) g/dL Albumin 4.0 (3.5-5.0) g/dL Current Medications Generic Name Dose Route Start Last Admin Trade Name Freq PRN Reason Stop Dose Admin Naloxone HCl 0.2 mg 04/04/23 23:31 Naloxone 0.4 Mg/Ml 1 Ml Vial IV Q2M PRN Opioid Reversal Intake and Output 04/04/23 04/05/23 04/05/23 22:59 06:59 14:59 Other: # Voids 1 Weight 58.967 kg 04/04/23 21:20 04/04/23 21:20
--- NOTE | 2023-04-05 13:08 | P.HPIM ---
History of Present Illness H&P Date: 04/05/23 History of present illness; patient is a 42-year-old lady comes in the hospital because of complaint of palpitations. She has been having this feeling of palpitations for last few weeks. Denies any shortness of breath. Patient's Smart watch told her that heart rate was elevated, patient became concerned about it. Denies any complaints of chest pressure during these episodes of palpitations. Patient does notice that she becomes diaphoretic during these times. Because of this complaint of palpation, patient came to the ER. Initial lab work in the ER showed WBC 6.8, hemoglobin 13, platelet 271, d-dimer 0.24, sodium 129, potassium 3.5, BUN 10, creatinine 0.85 Chest x-ray negative for any acute cardiopulmonary process. Patient admitted to medicine service REVIEW OF SYSTEMS: CONSTITUTIONAL: No fever, no malaise, no fatigue. HEENT: No recent visual problems or hearing problems. Denied any sore throat. CARDIOVASCULAR: As mentioned in HPI PULMONARY: No shortness of breath, no cough, no hemoptysis. GASTROINTESTINAL: No diarrhea, no nausea, no vomiting, no abdominal pain. NEUROLOGICAL: No headaches, no weakness, no numbness. HEMATOLOGICAL: Denies any bleeding or petechiae. GENITOURINARY: Denies any burning micturition, frequency, or urgency. MUSCULOSKELETAL/RHEUMATOLOGICAL: Denies any joint pain, swelling, or any muscle pain. ENDOCRINE: Denies any polyuria or polydipsia. The rest of the 14-point review of systems is negative. PHYSICAL EXAMINATION: GENERAL: The patient is alert and oriented x3, not in any acute distress. Well developed, well nourished. HEENT: Pupils are round and equally reacting to light. EOMI. No scleral icterus. No conjunctival pallor. Normocephalic, atraumatic. No pharyngeal erythema. No thyromegaly. CARDIOVASCULAR: S1 and S2 present. No murmurs, rubs, or gallops. PULMONARY: Chest is clear to auscultation, no wheezing or crackles. ABDOMEN: Soft, nontender, nondistended, normoactive bowel sounds. No palpable organomegaly. MUSCULOSKELETAL: No joint swelling or deformity. EXTREMITIES: No cyanosis, clubbing, or pedal edema. NEUROLOGICAL: Gross neurological examination did not reveal any focal deficits. SKIN: No rashes. Assessment and plan Palpitations Monitor vital signs Monitor CBC Monitor CMP trend troponin Continue IV fluids Check TSH Consult cardiology DVT prophylaxis: 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 Past Psychological History: No Psychological Hx Reported Smoking Status: Never smoker Past Alcohol Use History: None Reported Past Drug Use History: None Reported Medications and Allergies Home Medications Medication Instructions Recorded Confirmed Type Multivitamins, Thera [Multivitamin] 1 tab PO HS 08/27/14 04/05/23 History L.acidoph,Paracasei, B.lactis 1 cap PO HS 04/05/23 04/05/23 History [Probiotic] Turmeric Root Extract [Turmeric] 500 mg PO HS 04/05/23 04/05/23 History Allergies Allergy/AdvReac Type Severity Reaction Status Date / Time dextromethorphan AdvReac Hallucinati Verified 04/05/23 11:14 ons Physical Exam Vitals: Vital Signs Temp Pulse Pulse Pulse Resp BP BP 04/05/23 07:25 98.2 F 85 15 115/75 04/05/23 06:00 67 14 04/05/23 05:00 67 17 04/05/23 04:00 89 16 04/05/23 03:30 77 17 04/05/23 03:00 79 15 04/05/23 02:30 73 16 04/05/23 02:00 78 17 100/46 04/05/23 00:00 87 16 122/77 04/04/23 23:30 100 18 122/77 04/04/23 23:00 103 H 18 114/76 04/04/23 22:32 112 H 17 131/82 04/04/23 22:15 116 H 15 140/87 04/04/23 22:00 121 H 13 138/83 04/04/23 21:56 118 H 14 138/83 04/04/23 21:36 105 H 13 04/04/23 21:27 115 H 04/04/23 21:19 115 H 04/04/23 21:04 98.6 F 138 H 20 158/102 Pulse Ox 04/05/23 07:25 100 04/05/23 06:00 97 04/05/23 05:00 98 04/05/23 04:00 97 04/05/23 03:30 97 04/05/23 03:00 96 04/05/23 02:30 96 04/05/23 02:00 96 04/05/23 00:00 97 04/04/23 23:30 99 04/04/23 23:00 100 04/04/23 22:32 100 04/04/23 22:15 100 04/04/23 22:00 100 04/04/23 21:56 100 04/04/23 21:36 99 04/04/23 21:27 04/04/23 21:19 04/04/23 21:04 100 Intake and Output 04/04/23 04/05/23 04/05/23 22:59 06:59 14:59 Other: # Voids 1 Weight 58.967 kg Results CBC & Chem 7: 04/04/23 21:20 04/04/23 21:20 Labs: Abnormal Lab Results - Last 24 Hours (Table) 04/04/23 Range/Units 21:20 Chloride 109 H (98-107) mmol/L Glucose 116 H (74-99) mg/dL AST 42 H (14-36) U/L ALT 46 H (4-34) U/L
--- NOTE | 2023-04-05 13:10 | P.DS ---
Providers Date of admission: 04/04/23 23:31 Expected date of discharge: 04/05/23 Attending physician: Tyrell Canales Consults: 04/04/23 23:31 Consult Physician Routine Consulting Provider: [facility] Consult Reason/Comments: Persistent tachycardia, palpitations Do you want consulting provider notified?: Yes, Notify in am Primary care physician: Pancho Contreras [facility] Course: Discharge diagnoses; Palpitations Sinus tachycardia Lightheadedness Hospital course; patient is a 42-year-old lady comes in the hospital because of complaint of palpitations. She has been having this feeling of palpitations for last few weeks. Denies any shortness of breath. Patient's Smart watch told her that heart rate was elevated, patient became concerned about it. Denies any complaints of chest pressure during these episodes of palpitations. Patient does notice that she becomes diaphoretic during these times. Because of this complaint of palpation, patient came to the ER. Initial lab work in the ER showed WBC 6.8, hemoglobin 13, platelet 271, d-dimer 0.24, sodium 129, potassium 3.5, BUN 10, creatinine 0.85 Chest x-ray negative for any acute cardiopulmonary process. Patient admitted to medicine service She was seen by cardiology, patient troponin continue to be negative cardiology cleared the patient for discharge. Recommend outpatient follow-up PHYSICAL EXAMINATION: GENERAL: The patient is alert and oriented x3, not in any acute distress. Well developed, well nourished. HEENT: Pupils are round and equally reacting to light. EOMI. No scleral icterus. No conjunctival pallor. Normocephalic, atraumatic. No pharyngeal erythema. No thyromegaly. CARDIOVASCULAR: S1 and S2 present. No murmurs, rubs, or gallops. PULMONARY: Chest is clear to auscultation, no wheezing or crackles. ABDOMEN: Soft, nontender, nondistended, normoactive bowel sounds. No palpable organomegaly. MUSCULOSKELETAL: No joint swelling or deformity. EXTREMITIES: No cyanosis, clubbing, or pedal edema. NEUROLOGICAL: Gross neurological examination did not reveal any focal deficits. SKIN: No rashes. Patient Condition at Discharge: Stable Plan - Discharge Summary New Discharge Prescriptions: Continue Multivitamins, Thera [Multivitamin (formulary)] 1 tab PO HS Turmeric Root Extract [Turmeric] 500 mg PO HS L.acidoph,Paracasei, B.lactis [Probiotic] 1 cap PO HS Discharge Medication List Multivitamins, Thera [Multivitamin (formulary)] 1 tab PO HS 08/27/14 [History] L.acidoph,Paracasei, B.lactis [Probiotic] 1 cap PO HS 04/05/23 [History] Turmeric Root Extract [Turmeric] 500 mg PO HS 04/05/23 [History] Follow up Appointment(s)/Referral(s): Pancho Contreras MD [Primary Care Provider] - 1-2 days Jimmie Carl MD [STAFF PHYSICIAN] - 1 Week Patient Instructions/Handouts: Heart Palpitations (ED)
[2023-04-05 23:20] LABS: Chol/HDL Ratio 1.94 Ratio; LDL Cholesterol,Calculated 73.5 mg/dL (0.0-131.0); VLDL Calculation 11.24 mg/dL (5.00-40.00)
== END 2023-04-05 14:04 | disposition home or self-care (01) ==
LOC: EC 20:56 → 6NMEDSUR 23:31
PROVIDERS: ADMIT Hospitalist; ATTEND Hospitalist
DX: R00.0 Tachycardia, unspecified (principal); R00.2 Palpitations; R61 Generalized hyperhidrosis; R42 Dizziness and giddiness; Z88.8 Allergy status to other drugs, medicaments and biological substances; Z98.890 Other specified postprocedural states; Z86.16 Personal history of COVID-19
CPT/HCPCS: 96360; 99285; 36415; 93005; 85379; 80061; 80053; 84443; 83735; 84484 ×2; 85025; 83036; 71046; G0378

== ENCOUNTER 2023-04-28 12:44 | Day surgery (SDC) | payer OTHER ==
[2023-04-23 11:03] VITALS: BMI 22.3
[~2023-04-28 12:44] MED LIST: SODIUM CHLORIDE 0.9% 1,000 ML IV SCH
[2023-04-28] MEDS ORDERED: SODIUM CHLORIDE 0.9% 500 ML 500 ML IV ONE (12:58)
[2023-04-28 13:05] VITALS: BP 142/86; RESP 16
[2023-04-28 14:49] VITALS: PULSE 85
--- NOTE | 2023-04-28 18:53 | P.EPPROC ---
- EP Procedure Note Electrophysiology Procedure Note: Diagnosis Recurrent presyncope Twelve-lead EKG shows sinus tachycardia the beats a minute normal SC narrow QRS normal ST segments normal QT interval No delta waves no epsilon waves normal ST segments Tilt table test per protocol Baseline blood pressure 121/69 mmHg pulse rate 90 beats a minute Patient is to upright at an angle of 70 per protocol Blood pressure mildly elevated in the 140s systolic but her heart rate immediately increased 236 beats a minute and remained between 120 130 beats a minute She complained of being dizzy all through the procedure No syncope Impression sinus tachycardia at baseline which resolved during the supine phase of the tilt table test Immediate increase in heart rate by at least 30 bpm, sustained throughout the tilt table test Sustained increase in heart rate Impression Possible orthostatic intolerance/POTS but an additional element of anxiety cannot be excluded No evidence for secondary neurocardiogenic phenomenon
== END 2023-04-28 15:03 | disposition home or self-care (01) ==
LOC: CATHEP 12:44
PROVIDERS: ATTEND Internal Medicine Clinical Cardiac Electrophysiology
DX: R55 Syncope and collapse (principal); Z86.16 Personal history of COVID-19; Z79.01 Long term (current) use of anticoagulants; Z79.1 Long term (current) use of non-steroidal anti-inflammatories (NSAID)
CPT/HCPCS: 81025; 93660

== ENCOUNTER → 2023-05-23 | Outpatient (CLI) | payer OTHER ==
--- NOTE | 2023-05-26 09:47 | MM ---
Reason for Exam: Screening (asymptomatic). Last mammogram was performed 1 year(s) and 1 month(s) ago. Patient History: Menarche at age 12. First Full-Term at age 30. Late child-bearing (after 30). Patient has history of breast feeding. Patient used Hormonal Contraceptives for 10 years. 08/2019, Benign Excisional Biopsy on the right side. Last menstrual period: 05/08/2023 Risk Values: Karin 5 year model risk: 1.5%. NCI Lifetime model risk: 14.5%. Prior Study Comparison: 03/21/2020 Bilateral Diagnostic Mammogram, [facility]. 04/19/2021 Bilateral Screening Mammogram, [facility]. 05/08/2022 Bilateral MG 3D screening mammo w/cad, [facility]. Tissue Density: The breast tissue is extremely dense which could obscure a lesion on mammography. Findings: Analyzed By CAD. Right breast biopsy clip. There is no suspicious group of microcalcifications or new suspicious mass in either breast. Overall Assessment: Benign, BI-RAD 2 Management: Screening Mammogram of both breasts in [address] [facility] will attempt to contact patient to return for supplemental views and ultrasound if indicated. Patient should continue monthly self-breast exams. A clinical breast exam by your physician is recommended on an annual basis. This exam should not preclude additional follow-up of suspicious palpable abnormalities. Note on Karin scores and lifetime risk: 1. A Karin score greater than 3% is considered moderate risk. If this is the case, consider specialist referral to assess eligibility for a risk reducing agent. 2. If overall lifetime risk for the development of breast cancer is 20% or higher, the patient may qualify for future screening with alternating mammogram and breast MRI. Electronically signed and approved by: Favian Queen DO
== END | disposition home or self-care (01) ==
LOC: RADMAMWWP 08:01
PROVIDERS: ATTEND Obstetrics & Gynecology
DX: Z12.31 Encounter for screening mammogram for malignant neoplasm of breast (principal)
CPT/HCPCS: 77063; 77067

== ENCOUNTER → 2024-06-17 | Outpatient (CLI) | payer OTHER ==
--- NOTE | 2024-06-20 12:44 | MM ---
Reason for Exam: Screening (asymptomatic). Last mammogram was performed 1 year(s) and 1 month(s) ago. Patient History: Menarche at age 12. First Full-Term at age 30. Late child-bearing (after 30). Premenopausal. Patient has history of breast feeding. Patient used Hormonal Contraceptives for 10 years. 08/2019, Benign Excisional Biopsy on the right side. Risk Values: Karin 5 year model risk: 1.6%. NCI Lifetime model risk: 14.3%. Prior Study Comparison: 04/19/2021 Bilateral Screening Mammogram, [facility]. 05/08/2022 Bilateral MG 3D screening mammo w/cad, [facility]. 05/23/2023 Bilateral MG 3D screening mammo w/cad, [facility]. Tissue Density: The breasts are extremely dense, which lowers the sensitivity of mammography. Findings: Analyzed By CAD. Right breast biopsy clip. Right breast: There is no suspicious group of microcalcifications or new suspicious mass. Benign-appearing calcifications right breast. Left breast: There is no suspicious group of microcalcifications or new suspicious mass. Overall Assessment: Benign, BI-RAD 2 Management: Screening Mammogram of both breasts in [address] [facility] will attempt to contact patient to return for supplemental views and ultrasound if indicated. Patient should continue monthly self-breast exams. A clinical breast exam by your physician is recommended on an annual basis. This exam should not preclude additional follow-up of suspicious palpable abnormalities. Note on Karin scores and lifetime risk: 1. A Karin score greater than 3% is considered moderate risk. If this is the case, consider specialist referral to assess eligibility for a risk reducing agent. 2. If overall lifetime risk for the development of breast cancer is 20% or higher, the patient may qualify for future screening with alternating mammogram and breast MRI. Electronically signed and approved by: Favian Queen DO
== END | disposition home or self-care (01) ==
LOC: RADMAMWWP 09:26
PROVIDERS: ATTEND Obstetrics & Gynecology
DX: Z12.31 Encounter for screening mammogram for malignant neoplasm of breast
CPT/HCPCS: 77063; 77067